=== PATIENT | female | born 1990 | race Caucasian/White ===

== ENCOUNTER 2021-03-18 19:26 | Emergency (ER) | payer OTHER, MEDICAID ==
[~2021-03-18] VITALS: Ht 157.5 cm; Wt 54.4 kg
[~2021-03-18 19:26] MED LIST: AMOXICILLIN 50500 MG PO; IBUPROFEN 600600 M1 PO; IBUPROFEN 800800 M1 PO; IBUPROFEN 800800 MG PO; LIDOCAINE VISC100 M1 MM; NORCO 5-325 TA1 EACH PO; PENICILLIN V P500 MG PO; TYLENOL325 MG PO; ULTRAM 50MG TAB50 MG PO
[2021-03-18] MEDS ORDERED: ADDERALL 10 MG10 MG PO (19:48)
[2021-03-18] MEDS ORDERED: PROPANOLOL (19:48)
[2021-03-18] MEDS ORDERED: SUBOXONE 8 MG-1 EAC3 SUBLING (19:49)
[2021-03-18] MEDS ORDERED: CEPHALEXIN500 MG PO (19:57)
[2021-03-18] MEDS ORDERED: TRIAMCINOLONE A80 G2 TOP (19:57)
[2021-03-18 20:03] VITALS: BP 162/97
== END 2021-03-18 20:04 | disposition home or self-care (01) ==
LOC: M.ERS 19:26
DX: L73.9 Follicular disorder, unspecified (principal); K04.7 Periapical abscess without sinus; I10 Essential (primary) hypertension; F17.210 Nicotine dependence, cigarettes, uncomplicated; Z88.5 Allergy status to narcotic agent; Z91.041 Radiographic dye allergy status

== ENCOUNTER 2021-10-17 15:59 | Emergency (ER) | payer OTHER, MEDICAID ==
[~2021-10-17] VITALS: Ht 157.5 cm; Wt 54.4 kg
[~2021-10-17 15:59] MED LIST changes: +ADDERALL 10 MG10 MG PO; +CEPHALEXIN500 MG PO; +OLMESARTAN-HCT1 EACH PO; +SUBOXONE 8 MG-1 EAC3 SUBLING; +TRIAMCINOLONE A80 G2 TOP
[2021-10-17 17:41] LABS: HEMOGLOBIN 12.5 gm/dL (12.0-15.0); MCH 28.9 pg (26.0-34.0); MCHC 32.8 g/dL (28.0-37.0); MCV 88.1 fL (80.0-100.0); MPV 8.2 fl. (7.2-11.1); RBC 4.31 mil/uL (4.20-5.00); RDW-CV 14.4 % (10.5-14.5); WBC 11.2 thou/uL (4.0-11.0)
[2021-10-17 17:46] LABS: CALCIUM 8.9 mg/dL (8.5-10.1); CREATININE 0.8 mg/dL (0.6-1.3); POTASSIUM 3.5 mmol/L (3.5-5.1)
[2021-10-17] MEDS ORDERED: OLMESARTAN-HCT1 EACH PO (18:11)
[2021-10-17] MEDS ORDERED: AUGMENTIN 875-1 EACH PO (18:11)
[2021-10-17 18:25] VITALS: BP 146/85
== END 2021-10-17 18:25 | disposition home or self-care (01) ==
LOC: M.ERS 15:59
PROVIDERS: Physician Assistant
DX: K04.7 Periapical abscess without sinus (principal); Z76.0 Encounter for issue of repeat prescription; I10 Essential (primary) hypertension; F17.210 Nicotine dependence, cigarettes, uncomplicated; Z88.5 Allergy status to narcotic agent; Z91.041 Radiographic dye allergy status; Z88.8 Allergy status to other drugs, medicaments and biological substances; Z79.899 Other long term (current) drug therapy